=== PATIENT | female | born 1985 | race African-American/Black ===

== ENCOUNTER 2016-08-16 12:29 | Emergency (ER) | payer MEDICAID, OTHER ==
[~2016-08-16] VITALS: Ht 170.2 cm; Wt 79.4 kg
[2016-08-16 13:31] VITALS: BP 140/71
== END 2016-08-16 14:19 | disposition home or self-care (01) ==
LOC: ER 12:29
DX: N39.0 Urinary tract infection, site not specified (principal)

== ENCOUNTER 2018-07-26 14:24 | Emergency (ER) | payer SELFPAY ==
[~2018-07-26] VITALS: Ht 170.2 cm; Wt 86.2 kg
[2018-07-26 14:30] VITALS: BP 127/82
[2018-07-26] MEDS ORDERED: KETOROLAC TROMETH 60MG/2ML VIAL IM ONE (15:15)
== END 2018-07-26 15:55 | disposition home or self-care (01) ==
LOC: ER 14:31
DX: S39.012A Strain of muscle, fascia and tendon of lower back, initial encounter (principal); X50.1XXA Overexertion from prolonged static or awkward postures, initial encounter; Y93.89 Activity, other specified; Y99.8 Other external cause status; Y92.89 Other specified places as the place of occurrence of the external cause
CPT/HCPCS: 81002; 81025; 96372; 99283; J1885